=== PATIENT | female | born 1970 | race Caucasian/White ===

== ENCOUNTER 2018-08-26 12:20 | Emergency (ER) | payer OTHER, MEDICAID, SELFPAY ==
--- NOTE | 2018-08-26 12:52 | ED_ITS ---
HPI - Abdominal Pain <Concepción Fernandes PA-C - Last Filed: 08/26/18 19:35> General Chief Complaint: Abdominal Pain Stated Complaint: RIGHT SIDE PAIN Time Seen by Provider: 08/26/18 12:46 Source: patient Mode of arrival: ambulatory Limitations: no limitations History of Present Illness HPI narrative: This 48-year-old female comes to ED due to recurrent right upper quadrant pain which started a week ago. She states that she does not know of any new injury or trauma. She states that the pain can vary in nature from dull to sharp. It feels like at times she will have spasms of sharp pain which can last about 30 sec and shoot down lower into her abdomen. She states that she can also feel the pain radiate around her side at times. She states that sometimes the pain seems influenced by position, i.e. she had no pain when she awoke this morning and then when she sat up she had shooting pain briefly. She states sometimes it feels better when she has her right side and right arm stretched out over her head. She states that she thinks the pain is worse after eating anything, perhaps fatty foods more so. She states that she has been eating and drinking normally. She has not had any new fevers, chills, or sweats. She states that she had some vomiting and diarrhea a week ago when she initially had the pain on day 1, but none since. She denies any new urinary symptoms or hematuria. She denies any pain in the lower abdomen. She does have a history of occasional acid reflux and hiatal hernia, but has not had any reflux symptoms. She denies any chest pain, dyspnea, rash or other new complaints with this, comes in today due to the pain being more constant than other days, mostly dull but with spasms of sharp pain. She denies any recent travel or known exposures the, does live in but has only traveled locally recently Related Data Home Medications Medication Instructions Recorded Confirmed Excedrin 1 tab PO PRN PRN 08/26/18 08/26/18 bupropion HCl 1 tab PO DAILY 08/26/18 08/26/18 multivitamin 1 tab PO DAILY 08/26/18 08/26/18 Previous Rx's Medication Instructions Recorded methocarbamol [Robaxin] 1,000 mg PO Q6H PRN #30 tab 08/26/18 oxycodone-acetaminophen [Percocet] 1 tab PO Q4-6H PRN #6 tab 08/26/18 Allergies Allergy/AdvReac Type Severity Reaction Status Date / Time No Known Drug Allergies Allergy Verified 08/26/18 12:36 Review of Systems <MARISOL Henry Last Filed: 08/26/18 19:35> Review of Systems All systems reviewed & are unremarkable except as noted in HPI and below Exam <Concepción Fernandes PA-C - Last Filed: 08/26/18 19:35> Narrative Exam Narrative: GENERAL APPEARANCE: Patient sitting comfortably, in no distress. HEENT: PERRL, EOMI, no scleral icterus NECK: Supple LUNGS: Clear to auscultation bilaterally. HEART: Rate and rhythm regular, normal S1 and S2, no S3 or S4. ABDOMEN: Soft, nondistended, bowel sounds present x 4 quadrants, no masses palpable, no hepatosplenomegaly. Right upper quadrant tender to palpation over the costal margin without guarding or rebound, negative Lundberg sign, no CVAT EXTREMITIES: No edema, no calf tenderness DERMATOLOGIC: No jaundice or exanthem NEUROLOGIC: Alert and oriented with normal speech and coordination Initial Vital Signs Initial Vital Signs: Vital Signs Temperature 98.5 F 08/26/18 13:00 Pulse Rate 80 08/26/18 13:00 Respiratory Rate 20 08/26/18 13:00 Blood Pressure 151/75 H 08/26/18 13:00 Pulse Oximetry 98 08/26/18 13:00 <Meet Wang DO - Last Filed: 08/29/18 18:38> Initial Vital Signs Initial Vital Signs: Vital Signs Temperature 98.5 F 08/26/18 13:00 Pulse Rate 80 08/26/18 13:00 Respiratory Rate 20 08/26/18 13:00 Blood Pressure 151/75 H 08/26/18 13:00 Pulse Oximetry 98 08/26/18 13:00 Course <MARISOL Henry Last Filed: 08/26/18 19:35> Additional Information: Patient did not feel significant improvement after Toradol, did after Robaxin. She is moving more comfortably. She is able to elicit symptoms part of the time with movement, also some possible relation to food. She will continue NSAID, muscle relaxant, given a prescription for a few Percocet as well (she has taken all of these medicines in the past without SEs) . Advised follow-up if any acutely worsening symptoms, and otherwise she will get set up with a PCP as she may need a referral for further imaging and testing. She is agreeable Orders Ordered: Discontinued Medications Ketorolac Tromethamine (Toradol) 30 mg IV NOW ONE Stop: 08/26/18 13:24 Last Admin: 08/26/18 13:35 Dose: 30 mg Methocarbamol (Robaxin) 1,000 mg PO NOW ONE Stop: 08/26/18 14:19 Last Admin: 08/26/18 14:27 Dose: 1,000 mg Pantoprazole Sodium (Protonix) 40 mg IV NOW ONE Stop: 08/26/18 13:47 Last Admin: 08/26/18 13:56 Dose: 40 mg Vital Signs - 8 hr 08/26/18 13:00 08/26/18 15:22 Temperature 98.5 F Pulse Rate 80 69 Respiratory Rate 20 14 Blood Pressure 151/75 H 128/64 Pulse Oximetry 98 98 <Meet Wang DO - Last Filed: 08/29/18 18:38> Orders Ordered: Discontinued Medications Ketorolac Tromethamine (Toradol) 30 mg IV NOW ONE Stop: 08/26/18 13:24 Last Admin: 08/26/18 13:35 Dose: 30 mg Methocarbamol (Robaxin) 1,000 mg PO NOW ONE Stop: 08/26/18 14:19 Last Admin: 08/26/18 14:27 Dose: 1,000 mg Pantoprazole Sodium (Protonix) 40 mg IV NOW ONE Stop: 08/26/18 13:47 Last Admin: 08/26/18 13:56 Dose: 40 mg Vital Signs - 8 hr 08/26/18 13:00 08/26/18 15:22 Temperature 98.5 F Pulse Rate 80 69 Respiratory Rate 20 14 Blood Pressure 151/75 H 128/64 Pulse Oximetry 98 98 MDM - Abdominal Pain <Concepción Fernandes PA-C - Last Filed: 08/26/18 19:35> Lab Data Attestation: I reviewed the patient's lab results. Result diagrams: 08/26/18 13:08 08/26/18 13:08 Lab Results 08/26/18 08/26/18 Range/Units 13:08 13:08 WBC 8.0 (4.5-11.0) X10^3/uL RBC 4.44 (4.0-5.2) X10^6/uL Hgb 14.0 (12.0-16.0) g/dL Hct 41.2 (36-46) % MCV 92.8 (80-100) fL MCH 31.5 (26-34) PG MCHC 33.9 (30-36) % RDW 13.0 (11.6-14.8) % Plt Count 267 (150-400) X10^3/uL Neut % (Auto) 46.3 L (50-75) % Lymph % (Auto) 40.7 H (25-40) % Sutton % (Auto) 6.3 (3-14) % Eos % (Auto) 6.1 H (2-4) % Baso % (Auto) 0.6 (0-2) % Neut # (Auto) 3700 (1887-2294) /uL Sodium 139 (137-145) mmol/L Potassium 3.8 (3.4-5.1) mmol/L Chloride 103 (98-107) mmol/L Carbon Dioxide 26 (22-32) mmol/L BUN 12 (7-17) mg/dL Creatinine 0.80 (0.52-1.04) mg/dL Estimated GFR > 60.0 (>60) mL/min BUN/Creatinine Ratio 15.0 (6-22) Glucose 84 (70-100) mg/dL Calcium 9.9 (8.4-10.2) mg/dL Total Bilirubin 0.2 (0.2-1.3) mg/dL AST 32 (14-36) IU/L ALT 25 (9-52) IU/L Alkaline Phosphatase 64 (38-126) U/L Total Protein 7.2 (6.3-8.2) g/dL Albumin 4.5 (3.5-5.0) g/dL Globulin 2.7 (1.7-4.1) g/dL Albumin/Globulin Ratio 1.7 (1.0-2.8) Lipase 66 (23-300) U/L Point of care testing: Urine Dip Bedside Urine Glucose Negative Bedside Urine Bilirubin - Negative Bedside Urine Ketone - Negative Urine Specific [place] 1.010 Bedside Urine Occult Blood - Negative Bedside Urine Protein - Negative Bedside Urine Urobilinogen - Negative Bedside Urine Nitrite - Negative Bedside Urine Leukocytes - Negative Esterase Imaging Data US - abdomen: Radiologist's impression: [address] [address] Ultrasound Report Signed Patient: WICHO PARK MR#: [id number] : 1970 Acct:[id number] Age/Sex: 48 / F Date of Service: 08/26/18 Loc: ED Accession Number: [id number] Procedure: US abdomen complete Ordering Provider: Concepción Fernandes P.A-C PROCEDURE: US ABDOMEN COMPLETE INDICATIONS: RUQ pain, ?stone TECHNIQUE: Real-time scanning was performed of the abdominal and retroperitoneal organs, with image documentation. COMPARISON: None. FINDINGS: Liver: Liver is normal in size and homogeneous in echotexture. Gallbladder: There is no gallbladder wall thickening or pericholecystic fluid. No sonographic Lundberg's sign. 5 mm soft tissue echogenicity structure is noted in the gallbladder lumen likely represent a polyp. No shadowing stone is seen. Biliary ducts: Intrahepatic bile ducts are non-dilated. Extrahepatic bile duct caliber measures 3 mm. Normal is 6-7 mm or less in diameter, or 10 mm or less post-cholecystectomy. Pancreas: Visualized portions of the pancreas are sonographically normal. Spleen: Spleen is normal in size and homogeneous in echotexture. Kidneys: Kidneys are normal in size and echotexture. Right kidney measures 11 cm long; left kidney measures 10.1 cm long. No hydronephrosis or nephrolithiasis. No solid masses. Aorta: Visualized aorta is normal in caliber at less than 3 cm. Iliacs: Proximal common iliac arteries are normal in caliber at less than 2.5 cm. IVC: Intrahepatic inferior vena cava is patent. Miscellaneous: No free abdominal fluid. IMPRESSION: 5 mm gallbladder polyp. No sonographic evidence of acute cholecystitis. Rest of exam is unremarkable. Dictated by: Jasvir Allen M.D. on 08/26/2018 at 14:17 Approved by: Jasvir Allen M.D. on 08/26/2018 at 14:19 <Meet Wang DO - Last Filed: 08/29/18 18:38> Lab Data Lab Results 08/26/18 08/26/18 Range/Units 13:08 13:08 WBC 8.0 (4.5-11.0) X10^3/uL RBC 4.44 (4.0-5.2) X10^6/uL Hgb 14.0 (12.0-16.0) g/dL Hct 41.2 (36-46) % MCV 92.8 (80-100) fL MCH 31.5 (26-34) PG MCHC 33.9 (30-36) % RDW 13.0 (11.6-14.8) % Plt Count 267 (150-400) X10^3/uL Neut % (Auto) 46.3 L (50-75) % Lymph % (Auto) 40.7 H (25-40) % Sutton % (Auto) 6.3 (3-14) % Eos % (Auto) 6.1 H (2-4) % Baso % (Auto) 0.6 (0-2) % Neut # (Auto) 3700 (4698-0740) /uL Sodium 139 (137-145) mmol/L Potassium 3.8 (3.4-5.1) mmol/L Chloride 103 (98-107) mmol/L Carbon Dioxide 26 (22-32) mmol/L BUN 12 (7-17) mg/dL Creatinine 0.80 (0.52-1.04) mg/dL Estimated GFR > 60.0 (>60) mL/min BUN/Creatinine Ratio 15.0 (6-22) Glucose 84 (70-100) mg/dL Calcium 9.9 (8.4-10.2) mg/dL Total Bilirubin 0.2 (0.2-1.3) mg/dL AST 32 (14-36) IU/L ALT 25 (9-52) IU/L Alkaline Phosphatase 64 (38-126) U/L Total Protein 7.2 (6.3-8.2) g/dL Albumin 4.5 (3.5-5.0) g/dL Globulin 2.7 (1.7-4.1) g/dL Albumin/Globulin Ratio 1.7 (1.0-2.8) Lipase 66 (23-300) U/L Point of care testing: Urine Dip Bedside Urine Glucose Negative Bedside Urine Bilirubin - Negative Bedside Urine Ketone - Negative Urine Specific [place] 1.010 Bedside Urine Occult Blood - Negative Bedside Urine Protein - Negative Bedside Urine Urobilinogen - Negative Bedside Urine Nitrite - Negative Bedside Urine Leukocytes - Negative Esterase Discharge Plan Departure Patient Disposition: Home Clinical Impression: Acute right flank pain Discharge Date/Time: 08/26/18 15:23 Interventions: ED Discharge Assessment Last Done: 08/26/18 15:22 Instructions: DI for Abdominal Pain-Adult Activity Restrictions/Additional Instructions: As we talked about, the source of the pain in your right upper abdomen and flank area is not clear today. There does not appear to be any acute surgical problem based on your testing, however you may need further workup, i.e. on your biliary/gallbladder system. This could also be musculoskeletal as you do describe some spasm component to the pain and the muscle relaxants seem to be helping. Please continue ibuprofen regularly for now, 4-600 mg every 8 hr (you can take Zantac or Pepcid with this daily if needed). Add the muscle relaxant methocarbamol as needed, and I have also given you a prescription for a few Percocet since you have taken that without problems in the past. Please do not drive while taking either of these prescription medicines as they can make you sleepy. Eat a bland diet for now (no fatty foods) and avoid alcohol to see if this is helpful as well. Please get in touch regarding insurance today and when you are set up let them know you were seen in the emergency room and need a follow-up with a primary care office on your insurance in the next week after being seen in the emergency department. If you are not getting better, then you can get a referral to a GI specialist. Please return as we talked about if you have acutely worsening symptoms, or new symptoms such as fever or vomiting. Prescriptions: New methocarbamol [Robaxin] 500 mg tablet 1,000 mg PO Q6H PRN (Reason: muscle pain/spasm) Qty: 30 RF: 0 oxycodone-acetaminophen [Percocet] 5-325 mg tablet 1 tab PO Q4-6H PRN (Reason: acute flank pain) Qty: 6 RF: 0 No Action multivitamin Tablet 1 tab PO DAILY RF: 0 Excedrin 1 tab PO PRN PRN (Reason: headache/pain) RF: 0 bupropion HCl 1 tab PO DAILY RF: 0 <Meet Wang DO - Last Filed: 08/29/18 18:38> Cosign ED Attending Coscynthiaature Attestation: I was available for consultation during this patient's emergency department encounter
[2018-08-26 13:00] VITALS: BP 151/75; PULSE 80; RESP 20; TEMP 36.9; O2SAT 98
[2018-08-26 13:16] LABS: Add Manual Diff / Slide Review NO; Basophils Percent Auto 0.6 % (0-2); Eosinophils Percent Auto 6.1 % (2-4); Hematocrit 41.2 % (36-46); Lymphocytes Percent Auto 40.7 % (25-40); Mean Corpuscular HGB Conc 33.9 % (30-36); Mean Corpuscular Hemoglobin 31.5 PG (26-34); Mean Corpuscular Volume 92.8 fL (80-100); Monocytes Percent Auto 6.3 % (3-14); Neutrophils Absolute Auto 3700 /uL (1500-7000); Neutrophils Percent Auto 46.3 % (50-75); Platelet Count 267 X10^3/uL (150-400); Red Blood Cell Count 4.44 X10^6/uL (4.0-5.2)
--- NOTE | 2018-08-26 13:23 | DI.US.S_ITS ---
PROCEDURE: US ABDOMEN COMPLETE INDICATIONS: RUQ pain, ?stone TECHNIQUE: Real-time scanning was performed of the abdominal and retroperitoneal organs, with image documentation. COMPARISON: None. FINDINGS: Liver: Liver is normal in size and homogeneous in echotexture. Gallbladder: There is no gallbladder wall thickening or pericholecystic fluid. No sonographic Lundberg's sign. 5 mm soft tissue echogenicity structure is noted in the gallbladder lumen likely represent a polyp. No shadowing stone is seen. Biliary ducts: Intrahepatic bile ducts are non-dilated. Extrahepatic bile duct caliber measures 3 mm. Normal is 6-7 mm or less in diameter, or 10 mm or less post-cholecystectomy. Pancreas: Visualized portions of the pancreas are sonographically normal. Spleen: Spleen is normal in size and homogeneous in echotexture. Kidneys: Kidneys are normal in size and echotexture. Right kidney measures 11 cm long; left kidney measures 10.1 cm long. No hydronephrosis or nephrolithiasis. No solid masses. Aorta: Visualized aorta is normal in caliber at less than 3 cm. Iliacs: Proximal common iliac arteries are normal in caliber at less than 2.5 cm. IVC: Intrahepatic inferior vena cava is patent. Miscellaneous: No free abdominal fluid. IMPRESSION: 5 mm gallbladder polyp. No sonographic evidence of acute cholecystitis. Rest of exam is unremarkable. Dictated by: Jasvir Allen M.D. on 08/26/2018 at 14:17 Approved by: Jasvir Allen M.D. on 08/26/2018 at 14:19
[2018-08-26] MEDS: KETOROLAC 60 MG/2 ML VIAL 30 MG IV (13:35)
[2018-08-26 13:50] LABS: Alanine Aminotransferase 25 IU/L (9-52); Albumin 4.5 g/dL (3.5-5.0); Albumin Globulin Ratio 1.7 (1.0-2.8); Alkaline Phosphatase 64 U/L (38-126); Aspartate Aminotransferase 32 IU/L (14-36); Bilirubin Total 0.2 mg/dL (0.2-1.3); Blood Urea Nitrogen 12 mg/dL (7-17); Calcium 9.9 mg/dL (8.4-10.2); Carbon Dioxide 26 mmol/L (22-32); Chloride 103 mmol/L (98-107); Estimated Glomerular Filt Rate > 60.0 mL/min (>60); Globulin 2.7 g/dL (1.7-4.1); Glucose 84 mg/dL (70-100); HEMOLYSIS < 15 (0-50); Lipase 66 U/L (23-300); Potassium 3.8 mmol/L (3.4-5.1); Sodium 139 mmol/L (137-145); Total Protein 7.2 g/dL (6.3-8.2)
[2018-08-26] MEDS: PANTOPRAZOLE 40 MG VIAL IV (13:56)
[2018-08-26] MEDS: METHOCARBAMOL 500 MG TABLET 1000 MG PO (14:27)
[2018-08-26 15:22] VITALS: BP 128/64; PULSE 69; RESP 14; O2SAT 98
== END 2018-08-26 15:23 | disposition home or self-care (01) ==
PROVIDERS: Emergency Medicine; Emergency Provider Internal Medicine
DX: R10.9 Unspecified abdominal pain (principal)
CPT/HCPCS: 36591; 76700; 80053; 81003; 83690; 85025; 96374; 96375; 99282; 99284; C9113; J1885